=== PATIENT | female | born 1995 | race Caucasian/White ===

== ENCOUNTER 2019-04-13 03:14 | Emergency (ER) | payer MEDICAID ==
[~2019-04-13] VITALS: Ht 149.9 cm; Wt 73.9 kg
[2019-04-13 03:18] VITALS: Ht 149.9 cm; Wt 73.9 kg
[2019-04-13 03:42] VITALS: BP 127/86
== END 2019-04-13 03:42 | disposition home or self-care (01) ==
LOC: ED 03:14
DX: T16.1XXA Foreign body in right ear, initial encounter (principal); W45.8XXA Other foreign body or object entering through skin, initial encounter; Y93.89 Activity, other specified; Y92.89 Other specified places as the place of occurrence of the external cause; Y99.8 Other external cause status